=== PATIENT | female | born 1950 | race African-American/Black ===

== ENCOUNTER 2016-08-01 16:45 | Emergency (ER) | payer MEDICAID, OTHER ==
[~2016-08-01] VITALS: Ht 172.7 cm; Wt 73.0 kg
[2016-08-01 20:30] VITALS: BP 155/85
[2016-08-01] MEDS ORDERED: SODIUM CHLORIDE 0.9% 1,000 ML IV ONE (20:45)
[2016-08-01] MEDS ORDERED: INSULIN REGULAR (HUMULIN R) UD 100 UNITS/ML SYR SUBCUT ONE (20:45)
[2016-08-01 20:59] LABS: BASOPHILS % 0.7 % (0.0-2.0); EOSINOPHILS % 0.6 % (0.0-5.0); HEMATOCRIT. 31.5 % (36.0-48.0); HEMOGLOBIN. 10.4 g/dL (12.0-16.0); LYMPHOCYTES % 28.5 % (20.0-50.0); MEAN CORPUSCULAR HEMOGLOBIN 28.3 pg (28.0-32.0); MEAN CORPUSCULAR HGB CONC 32.9 g/dL (31.0-37.0); MEAN CORPUSCULAR VOLUME 85.9 fL (81.0-99.0); MEAN PLATELET VOLUME 10.5 fl (7.4-10.4); MONOCYTES % 9.2 % (2.0-8.0); PLATELET 283 x1000/uL (130-400); RED BLOOD CELL COUNT 3.67 mill/uL (4.2-5.4); RED CELL DISTRIBUTION WIDTH 17.3 % (11.6-14.6); WHITE BLOOD COUNT 8.7 x1000/uL (4.5-11.0)
[2016-08-01] MEDS ORDERED: INSULIN REGULAR (HUMULIN R) 300UNITS/3ML SUBCUT NR (21:00)
[2016-08-01 21:01] LABS: CHLORIDE 99 mEq/L (98-107)
[2016-08-01 21:02] LABS: INDEX HEMOLYSI 1 (1-3); INDEX ICTERIC 1 (1-4); INDEX LIPEMIC 1 (1-3)
[2016-08-01 21:06] LABS: ANION GAP 13; CALCIUM 8.5 mg/dL (8.5-10.1); CARBON DIOXIDE 26 mEq/L (21-32); UREA NITROGEN BLOOD 10 mg/dL (7-21)
[2016-08-01 21:09] LABS: eGFR > 60 mL/min (>60)
== END 2016-08-01 22:40 | disposition home or self-care (01) ==
LOC: ER 21:58
DX: E11.65 Type 2 diabetes mellitus with hyperglycemia (principal); I10 Essential (primary) hypertension; F17.200 Nicotine dependence, unspecified, uncomplicated; F12.10 Cannabis abuse, uncomplicated; Z79.4 Long term (current) use of insulin; Z91.14 Patient's other noncompliance with medication regimen
CPT/HCPCS: 36415; 80048; 82962; 85025; 96360; 96372; 99284; J1815; J7030

== ENCOUNTER 2016-08-18 14:30 | Inpatient (IN) | payer MEDICAID ==
[~2016-08-18] VITALS: Ht 170.2 cm; Wt 72.6 kg
[2016-08-18] VITALS (12 sets, daily range): BP systolic 124–144; BP diastolic 70–88
[2016-08-18] MEDS ORDERED: SODIUM CHLORIDE 0.9% 1,000 ML IV ONE (14:36)
[2016-08-18] MEDS ORDERED: INSULIN REGULAR (HUMULIN R) 300UNITS/3ML IV ONE (14:45)
[2016-08-18 15:01] LABS: BG BASE EXCESS -13.3 mmol/L (-2.0-2.0); BG CARBOXYHEMOGLOBIN 0.3 % (0.5-1.5); BG DEOXYHEMOGLOBIN 2.6 % (0.0-5.0); BG FRACTION INSPIRED OXYGEN 21; BG HCO3 ACT 11.8 mmol/L (22.0-26.0); BG METHEMOGLOBIN 0.3 % (0.0-1.5); BG OXYGEN SATURATION 97.4 % (92.0-98.5); BG OXYHEMOGLOBIN 96.8 % (94.0-97.0); BG PCO2 25.6 mmHg (35.0-45.0); BG PH 7.281 (7.350-7.450); BG PO2 110.8 mmHg (75.0-100.0); BG SAMPLE SITE RIGHT RADIAL; BG TOTAL HEMOGLOBIN 11.8 g/dL (12.0-18.0); BG VENT MODE ROOM AIR
[2016-08-18 15:05] LABS: HEMATOCRIT. 37.3 % (36.0-48.0); MEAN CORPUSCULAR HEMOGLOBIN 27.6 pg (28.0-32.0); MEAN CORPUSCULAR HGB CONC 29.6 g/dL (31.0-37.0); MEAN CORPUSCULAR VOLUME 93.2 fL (81.0-99.0); MEAN PLATELET VOLUME 11.3 fl (7.4-10.4); PLATELET 443 x1000/uL (130-400); RED CELL DISTRIBUTION WIDTH 19.3 % (11.6-14.6); WHITE BLOOD COUNT 22.8 x1000/uL (4.5-11.0)
[2016-08-18 15:11] LABS: DIFFERENTIAL COMMENT 1
[2016-08-18 15:13] LABS: INR 1.3; PROTHROMBIN TIME 13.1 sec
[2016-08-18 15:16] LABS: AMMONIA 12 uMol/L (<32); INDEX HEMOLYSI 1 (1-3)
[2016-08-18 15:18] LABS: ACETAMINOPHEN < 2 ug/mL (10-30); ALANINE AMINOTRANSFERASE 25 IU/L (13-61); ALBUMIN 2.7 g/dL (3.4-5.0); ANION GAP 33; CALCIUM 9.8 mg/dL (8.5-10.1); CARBON DIOXIDE 13 mEq/L (21-32); CHLORIDE 114 mEq/L (98-107); CREATINE KINASE 593 IU/L (26-192); ETHANOL BLOOD < 10 mg/dL; INDEX HEMOLYSI 1 (1-3); INDEX ICTERIC 1 (1-4); INDEX LIPEMIC 1 (1-3); LIPASE 481 IU/L (73-393); NT PRO B-TYPE NATRIURETIC PEP 585 pg/mL (5-125); TROPONIN I < 0.02 ng/mL (0.00-0.04); UREA NITROGEN BLOOD 55 mg/dL (7-21); eGFR 39 mL/min (>60)
[2016-08-18 15:23] LABS: THYROID STIMULATING HORMONE 0.52 uIU/mL (0.36-3.74)
[2016-08-18 15:24] LABS: LACTIC ACID 4.5 mmol/L (0.4-2.0)
[2016-08-18 15:28] LABS: ANISOCYTOSIS 2+; OVALOCYTES 3+; PLATELET ESTIMATE SLIGHTLY INCREASED
[2016-08-18] MEDS ORDERED: PIPERACILLIN/TAZ 3.375G PREMIX 50 ML IV ONE (15:30)
[2016-08-18] MEDS ORDERED: SODIUM CHLORIDE 0.9% 1000ML BAG (SEPSIS BOLUS) IV ONE (15:30)
[2016-08-18] MEDS ORDERED: SODIUM CHLORIDE 0.9% 2,400 ML IV SCH (15:45)
[2016-08-18 16:06] LABS: BETA HYDROXYBUTYRATE 11.9 mMol/L (0.0-0.3)
[2016-08-18] MEDS ORDERED: INSULIN REGULAR (DRIP) 100 UNITS in SODIUM CHLORIDE 0.9% 99 ML IV SCH ×2 (16:15→19:00)
[2016-08-18 17:11] LABS: CLARITY URINE CLOUDY (CLEAR); COLOR URINE YELLOW (YELLOW); GLUCOSE URINE 3+ (NEGATIVE); KETONES URINE 3+ (NEGATIVE); LEUKOCYTE ESTERASE URINE NEGATIVE (NEGATIVE); NITRITE URINE NEGATIVE (NEGATIVE); OCCULT BLOOD URINE 1+ (NEGATIVE); PROTEIN URINE 1+ (NEGATIVE); SPECIFIC GRAVITY URINE 1.028 (1.005-1.030)
[2016-08-18 17:24] LABS: HYALINE CASTS URINE 0-5 /lpf; SQUAMOUS EPITHELIAL CELL URINE RARE /lpf (RARE/1+)
[2016-08-18 17:25] LABS: RBC URINE 0-2 /hpf (0-2)
[2016-08-18 17:26] LABS: AMORPHOUS SEDIMENT URINE 2+ /lpf; BACTERIA URINE 2+
[2016-08-18 17:32] LABS: *AMPHETAMINES SCREEN URINE NEGATIVE (NEGATIVE); *BARBITURATES SCREEN URINE NEGATIVE (NEGATIVE); *BENZODIAZEPINES SCREEN URINE NEGATIVE (NEGATIVE); *COCAINE SCREEN URINE NEGATIVE (NEGATIVE); CANNABINOID URINE SCREEN NEGATIVE (NEGATIVE); ECSTASY MDMA SCREEN URINE NEGATIVE (NEGATIVE); METHADONE URINE SCREEN NEGATIVE (NEGATIVE); OPIATES URINE SCREEN NEGATIVE (NEGATIVE); PHENCYCLIDINE URINE SCREEN NEGATIVE (NEGATIVE)
[2016-08-18] MEDS ORDERED: SODIUM CHLORIDE 0.45% 1,000 ML IV SCH (19:45)
[2016-08-18] MEDS ORDERED: DEXTROSE 50% WATER 50ML SYRINGE IV PRN ×2 (20:00)
[2016-08-18 20:04] LABS: CALCIUM 9.1 mg/dL (8.5-10.1)
[2016-08-18] MEDS: BLOOD SUGAR DIAGNOSTIC STRIP TEST SCH ×3 (20:11→22:09)
[2016-08-18] MEDS ORDERED: INSULIN REGULAR (DRIP) 100 UNITS in SODIUM CHLORIDE 0.9% 100 ML IV SCH (21:00)
[2016-08-18] MEDS ORDERED: INSULIN DETEMIR UD 100 UNITS/ML SYR SUBCUT NR (22:15)
[2016-08-18] MEDS ORDERED: LEVOFLOXACIN 500MG PREMIX 100 ML IV NR (22:15)
[2016-08-18] MEDS: PIPERACILLIN/TAZ 3.375G PREMIX 50 ML IV SCH (22:24)
[2016-08-18] MEDS: DEXT 5%/0.45% NACL KCL 20MEQ/L 1,000 ML IV SCH (23:08)
[2016-08-19] VITALS (45 sets, daily range): BP systolic 119–164; BP diastolic 67–92
[2016-08-19] MEDS: BLOOD SUGAR DIAGNOSTIC STRIP TEST SCH ×6 (02:11→22:05)
[2016-08-19] MEDS: INSULIN LISPRO 100 UNITS/ML SUBCUT SCH ×6 (02:17→22:10)
[2016-08-19 03:43] LABS: HEMATOCRIT. 29.5 % (36.0-48.0); HEMOGLOBIN. 9.3 g/dL (12.0-16.0); MEAN CORPUSCULAR HEMOGLOBIN 27.6 pg (28.0-32.0); MEAN CORPUSCULAR HGB CONC 31.7 g/dL (31.0-37.0); PLATELET 277 x1000/uL (130-400); RED BLOOD CELL COUNT 3.39 mill/uL (4.2-5.4); RED CELL DISTRIBUTION WIDTH 18.4 % (11.6-14.6); WHITE BLOOD COUNT 24.2 x1000/uL (4.5-11.0)
[2016-08-19 03:51] LABS: DIFFERENTIAL COMMENT 1
[2016-08-19] MEDS: PIPERACILLIN/TAZ 3.375G PREMIX 50 ML IV SCH ×3 (06:11→22:09)
[2016-08-19] MEDS: DEXT 5%/0.45% NACL KCL 20MEQ/L 1,000 ML IV SCH (06:13)
[2016-08-19 06:14] LABS: INDEX HEMOLYSI 1 (1-3); INDEX ICTERIC 1 (1-4); INDEX LIPEMIC 1 (1-3)
[2016-08-19 07:26] LABS: CALCIUM 8.5 mg/dL (8.5-10.1)
[2016-08-19 08:06] LABS: ALBUMIN 2.2 g/dL (3.4-5.0); ANION GAP 20; CALCIUM 8.9 mg/dL (8.5-10.1); CARBON DIOXIDE 22 mEq/L (21-32); CHLORIDE 124 mEq/L (98-107); UREA NITROGEN BLOOD 55 mg/dL (7-21); eGFR 37 mL/min (>60)
[2016-08-19 08:07] LABS: ALANINE AMINOTRANSFERASE 20 IU/L (13-61)
[2016-08-19 08:09] LABS: ANISOCYTOSIS 2+
[2016-08-19 08:10] LABS: OVALOCYTES 2+
[2016-08-19 08:11] LABS: PLATELET ESTIMATE NORMAL
[2016-08-19] MEDS: PANTOPRAZOLE SODIUM 40 MG/VIAL IV SCH (08:11)
[2016-08-19] MEDS ORDERED: VANCOMYCIN 1250MG in DEXTROSE 5% WATER 250ML IV SCH (10:00)
[2016-08-19 11:30] LABS: CALCIUM 8.6 mg/dL (8.5-10.1)
[2016-08-19] MEDS: DEXT 5% WATER + KCL 20MEQ/L 1,000 ML IV SCH ×2 (13:14→20:21)
[2016-08-19] MEDS ORDERED: INSULIN LISPRO 100 UNITS/ML SUBCUT NR (18:57)
[2016-08-19 19:32] LABS: CALCIUM 8.5 mg/dL (8.5-10.1)
[2016-08-19] MEDS ORDERED: LEVOFLOXACIN 250MG PREMIX 50 ML IV SCH (21:00)
[2016-08-20] VITALS (22 sets, daily range): BP systolic 111–143; BP diastolic 70–98
[2016-08-20] MEDS: BLOOD SUGAR DIAGNOSTIC STRIP TEST SCH ×6 (01:43→21:17)
[2016-08-20] MEDS: INSULIN LISPRO 100 UNITS/ML SUBCUT SCH ×6 (01:49→21:19)
[2016-08-20] MEDS: DEXT 5% WATER + KCL 20MEQ/L 1,000 ML IV SCH ×2 (03:00→08:14)
[2016-08-20] MEDS: PIPERACILLIN/TAZ 3.375G PREMIX 50 ML IV SCH ×3 (05:23→21:17)
[2016-08-20 05:44] LABS: BASOPHILS % 0.8 % (0.0-2.0); EOSINOPHILS % 0.3 % (0.0-5.0); HEMATOCRIT. 28.9 % (36.0-48.0); HEMOGLOBIN. 9.2 g/dL (12.0-16.0); LYMPHOCYTES % 9.7 % (20.0-50.0); MEAN CORPUSCULAR HEMOGLOBIN 27.6 pg (28.0-32.0); MEAN CORPUSCULAR HGB CONC 31.8 g/dL (31.0-37.0); MEAN CORPUSCULAR VOLUME 86.7 fL (81.0-99.0); MEAN PLATELET VOLUME 10.6 fl (7.4-10.4); NEUTROPHILS % 82.2 % (40.0-76.0); PLATELET 241 x1000/uL (130-400); RED BLOOD CELL COUNT 3.33 mill/uL (4.2-5.4); RED CELL DISTRIBUTION WIDTH 18.4 % (11.6-14.6); WHITE BLOOD COUNT 14.2 x1000/uL (4.5-11.0)
[2016-08-20 06:38] LABS: CALCIUM 8.8 mg/dL (8.5-10.1)
[2016-08-20] MEDS: PANTOPRAZOLE SODIUM 40 MG/VIAL IV SCH (08:14)
[2016-08-20] MEDS: VANCOMYCIN 1 G PREMIX 200 ML IV SCH (08:14)
[2016-08-20] MEDS: INSULIN DETEMIR UD 100 UNITS/ML SYR SUBCUT SCH (21:59)
[2016-08-21 00:30] VITALS: BP 130/85
[2016-08-21] MEDS: BLOOD SUGAR DIAGNOSTIC STRIP TEST SCH ×4 (01:50→21:31)
[2016-08-21] MEDS: INSULIN LISPRO 100 UNITS/ML SUBCUT SCH ×4 (01:50→21:30)
[2016-08-21] MEDS: PIPERACILLIN/TAZ 3.375G PREMIX 50 ML IV SCH (07:32)
[2016-08-21 08:00] VITALS: BP 135/90
[2016-08-21] MEDS: VANCOMYCIN 1 G PREMIX 200 ML IV SCH (09:08)
[2016-08-21] MEDS: PANTOPRAZOLE SODIUM 40 MG/VIAL IV SCH (09:08)
[2016-08-21 12:00] VITALS: BP 139/94
[2016-08-21] MEDS ORDERED: INSULIN LISPRO 100 UNITS/ML SUBCUT SCH (12:00)
[2016-08-21] MEDS ORDERED: BLOOD SUGAR DIAGNOSTIC STRIP TEST SCH (12:00)
[2016-08-21] MEDS ORDERED: DEXTROSE 50% WATER 50ML SYRINGE IV PRN (13:30)
[2016-08-21] MEDS: CEFTRIAXONE 2 G in DEXTROSE 5% WATER 50 ML IV SCH (15:04)
[2016-08-21 16:00] VITALS: BP 138/88
[2016-08-21 20:00] VITALS: BP 140/86
[2016-08-21] MEDS: INSULIN DETEMIR UD 100 UNITS/ML SYR SUBCUT SCH (21:30)
[2016-08-22 04:00] VITALS: BP 141/87
[2016-08-22] MEDS: BLOOD SUGAR DIAGNOSTIC STRIP TEST SCH ×3 (07:20→18:17)
[2016-08-22] MEDS: INSULIN LISPRO 100 UNITS/ML SUBCUT SCH ×3 (07:50→18:43)
[2016-08-22 08:00] VITALS: BP 109/82
[2016-08-22] MEDS ORDERED: FAMOTIDINE 20MG/2ML VIAL IV SCH (09:00)
[2016-08-22 12:00] VITALS: BP 125/84
[2016-08-22] MEDS: CEFTRIAXONE 2 G in DEXTROSE 5% WATER 50 ML IV SCH (12:52)
[2016-08-22 16:00] VITALS: BP 120/69
[2016-08-22 18:57] VITALS: BP 120/69
== END 2016-08-22 19:00 | DRG 720 ==
LOC: ER 14:56 → CVICU 16:13 → 6WST 08-21 00:25
PROVIDERS: ADMIT Internal Medicine; ATTEND Internal Medicine
PROC: 02HV33Z Insertion of Infusion Device into Superior Vena Cava, Percutaneous Approach (ICD-10-PCS; principal; 2016-08-21)
PROC: B5181ZA Fluoroscopy of Superior Vena Cava using Low Osmolar Contrast, Guidance (ICD-10-PCS; 2016-08-21)
PROC: B548ZZA Ultrasonography of Superior Vena Cava, Guidance (ICD-10-PCS; 2016-08-21)
DX: A41.01 Sepsis due to Methicillin susceptible Staphylococcus aureus (principal); G93.40 Encephalopathy, unspecified; E13.10 Other specified diabetes mellitus with ketoacidosis without coma; N17.9 Acute kidney failure, unspecified; E87.0 Hyperosmolality and hypernatremia; L89.159 Pressure ulcer of sacral region, unspecified stage; I10 Essential (primary) hypertension; D64.9 Anemia, unspecified; E86.0 Dehydration; N12 Tubulo-interstitial nephritis, not specified as acute or chronic; S16.1XXA Strain of muscle, fascia and tendon at neck level, initial encounter; X58.XXXA Exposure to other specified factors, initial encounter; Y93.89 Activity, other specified; Y92.89 Other specified places as the place of occurrence of the external cause; Y99.8 Other external cause status; Z83.3 Family history of diabetes mellitus; Z82.49 Family history of ischemic heart disease and other diseases of the circulatory system; Z86.73 Personal history of transient ischemic attack (TIA), and cerebral infarction without residual deficits
CPT/HCPCS: 36415; 36569; 36600; 51702; 70450; 71010; 72125; 74176; 76937; 77001; 80048; 80053; 80305; 80307; 80329; 81001; 82010; 82140; 82375; 82550; 82805; 82962; 83605; 83690; 83880; 84443; 84484; 85025; 85610; 87040; 87070; 87077; 87086; 92610; 93005; 93306; 96365; 96375; 99291; A6261; C1725; C1769; C9113; G0482; J0696; J1815; J1956; J2543; J3370; J3490; J7030; J7040; J7050; J7060; A4315